=== PATIENT | female | born 1940 | race Caucasian/White ===

== ENCOUNTER 2017-06-26 01:33 | Inpatient (IN) | payer OTHER, BC ==
[~2017-06-26] VITALS: Ht 162.6 cm; Wt 69.8 kg
--- NOTE | 2017-06-26 01:41 | NUR ---
DR LUIS AT BEDSIDE FOR MSE.
--- NOTE | 2017-06-26 01:43 | NUR ---
PT BIB AMBULANCE FOR C/O OF 08/27 EPIGASTRIC SQUEEZING PAIN RADIATING TO BACK AROUND MIDNIGHT TONIGHT WITH DIAPHORESIS AND DIZZINESS WHICH HAS SINCE RESOLVED. PT STATES 'I FEEL GOOD, I AM READY TO GO HOME.'
[2017-06-26 02:33] LABS: CALCIUM 8.5 mg/dL (8.5-10.1); CARBON DIOXIDE 27.1 mmol/L (21-32); CHLORIDE SERUM 103 mmol/L (98-107); CREATININE SERUM 1.1 mg/dL (0.6-1.0); GLUCOSE SERUM 175 mg/dL (74-106); POTASSIUM SERUM 3.5 mmol/L (3.5-5.1); SODIUM SERUM 140 mmol/L (136-145)
[2017-06-26 02:36] LABS: ALKALINE PHOSPHATASE 107 U/L (46-116); ALT/SGPT 41 U/L (14-59); AST/SGOT 67 U/L (15-37); BILIRUBIN TOTAL 0.42 mg/dL (0.20-1.00); LIPASE 96 IU/L (73-393); TOTAL PROTEIN, SERUM 6.7 g/dL (6.4-8.2)
[2017-06-26 02:37] LABS: ALBUMIN 3.2 g/dL (3.4-5.0)
--- NOTE | 2017-06-26 02:41 | NUR ---
PT SITTING UP IN BED VISITING WITH SPOUSE WITH NO SIGNS OF DISTRESS NOTED AT THIS TIME.
[2017-06-26 02:45] LABS: BASOPHIL % 0.3 % (0-2); PLATELET COUNT 224 x10^3mcL (130-400); RED CELL DISTRIBUTION WIDTH 13.8 % (11.5-14.5)
--- NOTE | 2017-06-26 03:34 | NUR ---
REPORT GIVEN TO DEBBI REDDY.
[2017-06-26 04:11] VITALS: BP 147/89
[2017-06-26 04:11] LABS: PHOSPHOROUS 3.3 mg/dL (2.5-4.9)
--- NOTE | 2017-06-26 04:19 | NUR ---
RECEIVED FROM ER, TRANSPORTED VIA [facility]. AMBULATED WITH STEADY GAIT INTO ROOM. STATED CALLED PARAMEDICS DUE TO CRUSHING PAIN TO SIDE OF CHEST RADIATING TO FRONT, ACCOMPANIED BY SWEATING, NAUSEA AND DIZZINESS. STATED TOOK 2 TUMS AT HOME AND ASPIRIN, AND PAIN WAS RELIEVED BY THE TIME SHE GOT TO ER. BREATHING EVEN AND UNLABORED ON ROOM AIR. SALINE LOCK TO LEFT FOREARM. DENIES HAVING PAIN OR CHEST DISCOMFORT OR NAUSEA AT THIS TIME. HOB ELEVATED 30 DEG. UPPER SIDE RAILS RAISED, BED IN LOWEST POSITION. DR. WOODARD WAS IN ROOM TO ASSESS PT. ORIENTED TO ROOM ENVIRONMENT, INSTRUCTED ON USE OF CALL LIGHT TO CALL FOR ASSISTANCE. PLACED WITHIN EASY REACH.
[2017-06-26 04:21] LABS: T3 TOTAL 1.42 ng/mL
[2017-06-26 04:22] LABS: FREE T4 1.13 ng/dL (0.76-1.46); T4(THYROXINE) 8.6 ug/dL (4.7-13.3)
--- NOTE | 2017-06-26 06:40 | NUR ---
STATED SLEPT WELL. DENIES HAVING PAIN, NAUSEA OR DIZZINESS. WALKED WITH STEADY GAIT TO RESTROOM.
[2017-06-26 07:14] LABS: microscopic required? YES; urine erythrocyte NEGATIVE (NEGATIVE)
--- NOTE | 2017-06-26 07:15 | NUR ---
AAO X4.DENIES ANY PAIN/DISCOMFORT.LUNGS CLEAR.ON SR ON THE MONITOR.IVF NS GOING AT 100 ML/HR INFUSING WELL.CALL LIGHT WITHIN REACH.INSTRUCTED TO CALL FOR ANY PAIN/DISCOMFORT.PT VERBALIZES UNDERSTANDING.WILL CONTINUE TO MONITOR PT.
[2017-06-26 08:14] LABS: AMPHETAMINE QUAL UR NONE DETECTED (NEG <=1000)
--- NOTE | 2017-06-26 08:38 | NUR ---
AND THE MEDICINE TEAM AT BEDSIDE.INFORMED PT ABOUT THE PLAN OF CARE.WILL DO LABS AND IF EVERYTHING IS OK THAT SHE WILL BE GOING HOME THIS AFTERNOON.PT COOPERATIVE WITH THE PLAN OF CARE.
[2017-06-26 10:00] VITALS: BP 120/60
[2017-06-26 13:29] VITALS: BP 135/87
--- NOTE | 2017-06-26 15:00 | NUR ---
PT COMFORTABLE NO COMPLAINTS.
--- NOTE | 2017-06-26 17:15 | NUR ---
AT BEDSIDE ,INFORMED PT WILL STAY FOR TONIGHT.PT REFUSED TO STAY.WANTED TO LEAVE AMA. EXPLAINED TO PT THE RISK OF LEAVING AMA,PT VERBALIZES UNDERSTANDING.SIGNED AMA FORM.
--- NOTE | 2017-06-26 18:07 | NUR ---
IV AND RODOLFO Meredith/Jadyn'ChuckWENT DOWN VIA WHEELCHAIR ACCOMPANIED BY CHEF FRENCH AND .
== END 2017-06-26 18:10 | disposition left against medical advice (07) | DRG 206 ==
LOC: ED 01:33 → DU 03:11
PROVIDERS: Emergency Medicine; ADMIT Family Medicine
DX: M94.0 Chondrocostal junction syndrome [Tietze] (principal); E44.0 Moderate protein-calorie malnutrition; K21.9 Gastro-esophageal reflux disease without esophagitis; R73.03 Prediabetes; E03.9 Hypothyroidism, unspecified; Z68.26 Body mass index [BMI] 26.0-26.9, adult; Z85.820 Personal history of malignant melanoma of skin; R74.0 Nonspecific elevation of levels of transaminase and lactic acid dehydrogenase [LDH]
CPT/HCPCS: 82962; 83880; 84439; J7030